=== PATIENT | male | born 1990 | race Caucasian/White ===

== ENCOUNTER → 2016-11-14 | Outpatient (CLI) | payer SELFPAY ==
--- NOTE | 2016-11-14 23:40 | DI ---
XR KNEE 3 VW,11/14/2016 1:28 PM: Clinical History: Acute pain of the right knee. Previous Exam: None at this facility. Findings: 3 views of the right knee are obtained, and demonstrate anatomic alignment without fractures. Joint s paces are preserved. The surrounding soft tissues are unremarkable. Impression: Normal right knee.
--- NOTE | 2016-11-14 23:42 | DI ---
XR L-SPINE 2-3 VW,11/14/2016 1:28 PM: Clinical History: Low back pain radiating to the leg Previous Exam: None at this facility. Findings: AP and lateral views of the lumbar spine are obtained, and demonstrate anatomic alignment without fra ctures. Vertebral body height is preserved. There is mild loss of intervertebral disc height at L5/S1 . A nonobstructive bowel gas pattern is seen. No pathologic calcifications are identified. Impression: Mild degenerative disc disease at L5/S1 otherwise unremarkable.
== END ==
LOC: MOB RAD 13:37
PROVIDERS: ATTEND Family Medicine
DX: M25.561 Pain in right knee (principal); M54.5 Low back pain; M47.817 Spondylosis without myelopathy or radiculopathy, lumbosacral region
CPT/HCPCS: 72100; 73562

== ENCOUNTER → 2016-11-15 | Outpatient (CLI) | payer SELFPAY ==
--- NOTE | 2016-11-15 15:00 | DI ---
MRI LOW EXTREMITY JNT W/O CN,11/15/2016 2:12 PM: Clinical History: Acute right knee pain. Previous Exam: None at this facility. Findings: Multiplanar MR images are obtained through the right knee without contrast, and demonstrate anatomic alignment without fractures. Articular surfaces are preserved. There is no subchondral cyst formation . The anterior and posterior cruciate ligaments are intact. The medial and lateral collateral ligaments are also intact. Popliteus tendon is within normal limits. The medial and lateral menisci are intact. There is no evidence of knee joint effusion. There is no Argueta's cyst. Signal within the musculature is unremarkable in the major vascular flow voids are unremarkable. Impression: Normal right knee.
== END ==
LOC: MRI 13:50
PROVIDERS: ATTEND Family Medicine
DX: M25.561 Pain in right knee (principal)
CPT/HCPCS: 73721

== ENCOUNTER → 2016-11-26 | Outpatient (CLI) | payer SELFPAY ==
--- NOTE | 2016-11-26 20:23 | DI ---
AP PELVIS and RIGHT HIP, 11/26/2016 3:46 PM: Clinical History: Right hip pain. Previous Exam: None at this facility. There is no soft tissue abnormality. The bony structures of the pelvis are normal. 2 views of the rig ht hip are normal. Readin. Normal right hip exam. 2. The AP pelvis view is unremarkable.
== END ==
LOC: ORTHO 16:00
PROVIDERS: ATTEND Orthopaedic Surgery
DX: M25.551 Pain in right hip (principal)
CPT/HCPCS: 73502